=== PATIENT | male | born 1970 ===

== ENCOUNTER 2019-12-02 08:30 | Inpatient (IN) | payer OTHER ==
[~2019-12-02] VITALS: Ht 162.6 cm; Wt 67.1 kg
[2019-12-02] MEDS ORDERED: PREVACID30 MG PO (09:27)
[2019-12-08] MEDS ORDERED: INTESTINEX680 M1 PO (12:29)
[2019-12-08] MEDS ORDERED: OXYC1TAB9 PO (12:29)
== END 2019-12-08 13:03 | disposition home or self-care (01) | DRG 331 ==
LOC: O/R 12-05 05:45 → SURH 12-05 07:00 → O/R 12-05 08:30 → SURH 12-05 14:35
PROVIDERS: ADMIT Surgery; ATTEND Surgery
PROC: 0DJD8ZZ Inspection of Lower Intestinal Tract, Via Natural or Artificial Opening Endoscopic (ICD-10-PCS; 2019-12-05)
PROC: 0DBN4ZZ Excision of Sigmoid Colon, Percutaneous Endoscopic Approach (ICD-10-PCS; principal; 2019-12-05 07:00)
DX: K57.32 Diverticulitis of large intestine without perforation or abscess without bleeding (principal)